=== PATIENT | female | born 1995 ===

== ENCOUNTER 2024-11-19 22:31 | Emergency (ER) | payer OTHER, SELFPAY ==
[2024-11-19 22:32] VITALS: BP 139/93; PULSE 62; RESP 16; TEMP 36.1; O2SAT 97; BMI 38.1
--- NOTE | 2024-11-19 22:37 | ECG_ITS ---
Test Reason : ABD PAIN Blood Pressure : */* mmHG Vent. Rate : 54 BPM Atrial Rate : 54 BPM P-R Int : 180 ms QRS Dur : 88 ms QT Int : 414 ms P-R-T Axes : 23 11 16 degrees QTcB Int : 392 ms Sinus bradycardia Otherwise normal ECG No previous ECGs available Referred By: Generic ED Physician Electronically Signed By: REMA LINK
[2024-11-19 22:58] LABS: MANUAL DIFF FLAG NO
[2024-11-19 23:02] LABS: Basophils Absolute Auto 0.1 X10*3/uL (0.0-0.2); Basophils Percent Auto 0.8 % (0-2); Eosinophils Absolute Auto 0.5 X10*3/uL (0.0-0.4); Eosinophils Percent Auto 5.2 % (0-4); Hematocrit 36.5 % (37.0-47.0); Hemoglobin 12.5 g/dl (12.0-16.0); Imm Gran Abs Auto 0.02 X10*3/uL (0.00-0.03); Imm Gran Pct Auto 0.2 % (0.0-0.4); Lymphocytes Absolute Auto 4.2 X10*3/uL (1.2-4.9); Lymphocytes Percent Auto 40.8 % (20-40); Mean Corpuscular HGB Conc 34.2 g/dl (31.0-35.0); Mean Corpuscular Volume 90.6 fL (80.0-98.0); Mean Platelet Volume 10.6 fL (9.4-12.3); Monocytes Absolute Auto 0.8 X10*3/uL (0.1-1.2); Monocytes Percent Auto 7.4 % (2-11); Neutrophils Absolute Auto 4.7 x10*3/uL (2.0-8.3); Neutrophils Percent Auto 45.6 % (45-73); Platelet Count 276 X10*3/uL (160-400); Red Blood Count 4.03 X10*6/uL (4.20-5.50); Red Cell Distribution Width 11.8 % (11.0-16.0); White Blood Count 10.2 X10*3/uL (4.8-10.8)
[2024-11-19 23:14] LABS: Alanine Aminotransferase 25 U/L (0-31); Albumin Level 4.1 g/dL (3.5-5.0); Alkaline Phosphatase 92 U/L (39-117); Anion Gap 11 (12-20); Aspartate Amino Transferase 23 U/L (5-31); Bilirubin Total 0.2 mg/dL (0.0-1.0); Blood Urea Nitrogen 14 mg/dL (9-16); Calcium 9.1 mg/dL (8.4-10.2); Carbon Dioxide 25 mmol/L (22-29); Chloride 107 mmol/L (96-108); Estimated Glomerular Filt Rate > 60; Glucose Random 107 mg/dL (60-115); Lipase 20 U/L (8-78); Potassium 3.7 mmol/L (3.3-5.1); Sodium 139 mmol/L (135-145); Total Protein 6.8 g/dL (6.5-8.0)
[2024-11-19 23:24] LABS: Troponin-I High Sensitivity < 2.7 ng/L (<3.5-17.0)
[2024-11-20 00:52] VITALS: BP 142/94; PULSE 75; RESP 16; TEMP 36.1; O2SAT 98
--- NOTE | 2024-11-20 03:20 | ED.ABDPAIN ---
HPI - Abdominal Pain General Chief Complaint: Abdominal Pain Stated Complaint: abd pain center of stomach last 3 days Time Seen by Provider: 11/20/24 03:13 History of Present Illness ED Provider: Celestine Yoder MD HPI narrative: This is a 29-year-old female with midepigastric pain she denies any history of endoscopy, known biliary disease or heavy alcohol drinking. No radiation of the back she felt nauseated with nonbloody nonbilious vomiting x2. No diarrhea. No recent travel or sick contacts. Pain not affected by eating Related Data Previous Rx's ?Medication ?Instructions ?Recorded omeprazole 20 mg capsule,delayed 20 mg PO DAILY #30 caps 11/20/24 release Allergies Allergy/AdvReac Type Severity Reaction Status Date / Time No Known Allergies Allergy Verified 11/19/24 22:35 [facility] Social History Social History Smoked in Last 30 Days: Yes Use of substances other than those prescribed or required for medical reasons: No Advance Directives: No Advance Directives Information Provided: Yes Do you have a plan to hurt others: No Plan Patient : No Physical Exam ED Vital Signs: Vital Signs - 24 hr 11/19/24 22:32 11/20/24 00:52 11/20/24 05:00 Temperature 97.0 F 97.0 F 98.0 F Pulse Rate 62 75 58 Respiratory Rate 16 16 17 Blood Pressure 139/93 H 142/94 H 130/74 Pulse Oximetry 97 98 96 Oxygen Delivery Method Room Air Room Air 11/20/24 05:01 Temperature 98.0 F Pulse Rate 58 Respiratory Rate 17 Blood Pressure 130/74 Pulse Oximetry 96 Oxygen Delivery Method Room Air BMI result Body Mass Index 38.1 Const Other: EXAM: Gen: Alert, awake, well appearing, well hydrated. Head: Atraumatic Eyes: Anicteric, Normal conjunctiva. ENT: Moist mucosa, no pallor. ? Neck: Supple. Skin: ?No observable rash or bruising on exposed or examined skin Respiratory: Breathing comfortably, No distress.Clear to auscultation bilaterally, symmetric chest expansion, No wheeze, rales, ronchi. Cardiovascular: Regular rate and rhythm. No murmurs or rub. Well perfused periphery, warm extremities. No edema. ? Abdominal: Mild midepigastric tenderness. Negative Cortes's. Soft, no objective distension. No palpable masses or obvious organomegaly. ?No guarding, no rebound tenderness or other peritoneal findings. : No flank tenderness. Neuro: Alert. Gross movement of all extremities intact. ? Psych: Calm. Cooperative. MSK: No grossly visible deformity. Vital signs: See flowsheet Procedures Procedure Narrative Procedure Narrative: EMERGENCY ULTRASOUND INTERPRETATION- Limited Point of Care Biliary [This study was ordered, performed, and interpreted by myself. The study reveals: Impression: NO EVIDENCE OF ACUTE INFLAMMATION OF THE GALLBLADDER, NO EVIDENCE OF OBSTRUCTIVE BILIARY DISEASE] [Indication: RUQ PAIN Gallbladder: NO WALL THICKENING > 4MM, NO PERICHOLECYSTIC FLUID, NOT GROSSLY DILATED/HYDROPIC. -Additional: WALL MEASUREMENT: CBD MEASURMENT IF OBTAINED: Performed by: Celestine Yoder MD Images were stored CPT:[id number]] Medical Decision Making Medical Decision Making [facility] Narrative: 29-year-old female with midepigastric pain. Only minimal tenderness on exam. Not jaundiced. Reassuring lab work. No fever. No active vomiting Biliary ultrasound normal and reassuring without signs of stones or cholecystitis. Labs reassuring. Could be gastritis or PUD. Lipase is negative this is reassuring Differential Diagnosis Gastritis, PUD, biliary disease, enteritis, colitis, gas Lab Data [facility] Lab Attestation statement: I reviewed the patient's lab results. 11/19/24 22:51 11/19/24 22:51 Labs: Lab Results 11/19/24 Range/Units 22:51 WBC 10.2 (4.8-10.8) X10*3/uL RBC 4.03 L (4.20-5.50) X10*6/uL Hgb 12.5 (12.0-16.0) g/dl Hct 36.5 L (37.0-47.0) % MCV 90.6 (80.0-98.0) fL MCH 31.0 (27.0-33.0) pg MCHC 34.2 (31.0-35.0) g/dl RDW 11.8 (11.0-16.0) % Plt Count 276 (160-400) X10*3/uL MPV 10.6 (9.4-12.3) fL Immature Gran % (Auto) 0.2 (0.0-0.4) % Neut % (Auto) 45.6 (45-73) % Lymph % (Auto) 40.8 H (20-40) % Jay % (Auto) 7.4 (2-11) % Eos % (Auto) 5.2 H (0-4) % Baso % (Auto) 0.8 (0-2) % Lymph # (Auto) 4.2 (1.2-4.9) X10*3/uL Jay # (Auto) 0.8 (0.1-1.2) X10*3/uL Eos # (Auto) 0.5 H (0.0-0.4) X10*3/uL Baso # (Auto) 0.1 (0.0-0.2) X10*3/uL Abs Immat Gran (auto) 0.02 (0.00-0.03) X10*3/uL Absolute Neuts (auto) 4.7 (2.0-8.3) x10*3/uL Absolute Nucleated RBC 0.000 (0.0-0.012) X10*3/uL Nucleated RBC % (auto) 0.0 (0.0-0.2) /100WBC Sodium 139 (135-145) mmol/L Potassium 3.7 (3.3-5.1) mmol/L Chloride 107 (96-108) mmol/L Carbon Dioxide 25 (22-29) mmol/L Anion Gap 11 L (12-20) BUN 14 (9-16) mg/dL Creatinine 0.80 (0.5-1.4) mg/dL Estim Creat Clear Calc 124.0 Estimated GFR > 60 Random Glucose 107 (60-115) mg/dL Calcium 9.1 (8.4-10.2) mg/dL Magnesium 2.0 (1.6-2.6) mg/dL Total Bilirubin 0.2 (0.0-1.0) mg/dL AST 23 (5-31) U/L ALT 25 (0-31) U/L Alkaline Phosphatase 92 (39-117) U/L Troponin I High Sens < 2.7 (<3.5-17.0) ng/L Total Protein 6.8 (6.5-8.0) g/dL Albumin 4.1 (3.5-5.0) g/dL Lipase 20 (8-78) U/L Medications Administered Discontinued Medications Generic Name Dose Route Start Last Admin Trade Name Freq PRN Reason Stop Dose Admin Al Hydroxide/Mg Hydroxide 30 ml 11/20/24 03:53 11/20/24 04:01 Magnesium Hydrox/Alum Hydrox 30 Ml Oral.Susp PO 11/20/24 03:54 30 ml ONCE ONE Administration Famotidine 20 mg 11/20/24 03:53 11/20/24 04:01 Famotidine 20 Mg Tablet PO 11/20/24 03:54 20 mg ONCE ONE Administration Ondansetron HCl 4 mg 11/20/24 03:53 11/20/24 04:01 Ondansetron Odt 4 Mg Tab.Savanadis TRANSLINGU 11/20/24 03:54 4 mg ONCE ONE Administration Discharge Plan Discharge Clinical Impression: Acute epigastric pain Patient Disposition: Home, Self-Care Instructions: Abdominal Pain (ED) Additional Instructions: DISCHARGE DIAGNOSES: Abdominal pain unclear cause HISTORY OF PRESENTATION: ?Upper mid abdominal pain EMERGENCY DEPARTMENT COURSE,TESTS, TREATMENTS: While in the ED today you had reassuring lab work including a normal pancreas enzyme electrolytes kidney function and blood counts. We did a bedside ultrasound of your gallbladder with no signs of gallstones or other acute abnormalities DISCHARGE MEDICATIONS: ?[We have made no changes to your regular medication regimen] we have added on an antacid medication FOLLOW-UP: ?Call your primary or general physician soon as possible to discuss your symptoms, your ED visit and to discuss follow up plans Call your primary doctor for follow up INSTRUCTIONS ?& RETURN PRECAUTIONS: If any symptoms change first call your primary physician, if it is after-hours your primary doctors office should have a provider teacher adult education you can speak with. If the symptoms are severe or very concerning to you then call 911 or return to the ED. Celestine Yoder MD Emergency Physician [facility] Prescriptions: New omeprazole 20 mg capsule,delayed release(DR/EC) 20 mg PO DAILY Qty: 30 0RF Stand Alone Forms: Work/School Release Interventions: ED Discharge Assessment Last Done: 11/20/24 05:01 Discharge Date/Time: 11/20/24 05:09 Print Language: Upper Sorbian
[2024-11-20] MEDS: Magnesium Hydrox/Alum Hydrox 30 ML ORAL.SUSP PO (04:01)
[2024-11-20] MEDS: Ondansetron ODT 4 MG TAB.RAPDIS TRANSLINGU (04:01)
[2024-11-20] MEDS: Famotidine 20 MG TABLET PO (04:01)
[2024-11-20 05:00] VITALS: BP 130/74; PULSE 58; RESP 17; TEMP 36.7; O2SAT 96
[2024-11-20 05:01] VITALS: BP 130/74; PULSE 58; RESP 17; TEMP 36.7; O2SAT 96
== END 2024-11-20 05:09 | disposition home or self-care (01) ==
PROVIDERS: Emergency Provider Emergency Medicine; PCP Nurse Practitioner Family
DX: R10.816 Epigastric abdominal tenderness (principal); R10.13 Epigastric pain; R11.2 Nausea with vomiting, unspecified; R00.1 Bradycardia, unspecified
CPT/HCPCS: 36415; 80053; 83690; 83735; 84484; 85025; 93005; 99283; 99284

== ENCOUNTER → 2024-11-19 22:37 | Outpatient (BNV) | payer OTHER, SELFPAY | PROVIDERS: Emergency Provider Emergency Medicine; PCP Nurse Practitioner Family; Visit Provider Internal Medicine | DX: R00.1 Bradycardia, unspecified (principal) | CPT/HCPCS: 93010 ==